=== PATIENT | male | born 1980 | race Caucasian/White ===

== ENCOUNTER → 2016-04-12 | Outpatient (CLI) | payer BC ==
--- NOTE | 2016-04-12 13:57 | DIAGNOSTIC IMAGING REPORT ---
SCROTAL ULTRASOUND CLINICAL HISTORY: Testicular pain. COMPARISON STUDY: None. TECHNIQUE: Grayscale and color and duplex Doppler sonography of the scrotum was performed. FINDINGS: The right testis measures 5.6 x 2.4 x 2.9 cm and the left measures 5.7 x 2.4 x 2.7 cm. Color flow within each testis is symmetric. There is no testicular mass. There is slight increased vascularity the left epididymis which compared to the right. IMPRESSION: 1. Normal sonographic appearance of the testes. No evidence of testicular torsion. No testicular mass. 2. Slight asymmetric increased flow within the left epididymis which may reflect mild epididymitis. Electronically signed by: Jaspreet Hughes M.D. 04/12/2016 1:55 PM Dictated Date/Time: 04/12/2016 1:54 PM
== END | disposition home or self-care (01) ==
LOC: C.ULTR 13:22
PROVIDERS: ATTEND Nurse Practitioner Family
DX: N50.819 Testicular pain, unspecified (principal)

== ENCOUNTER → 2017-06-12 | Outpatient (CLI) | payer BC | END | disposition home or self-care (01) | LOC: C.PATHSPEC 17:56 | PROVIDERS: ATTEND Physician Assistant | DX: C44.310 Basal cell carcinoma of skin of unspecified parts of face (principal) ==